=== PATIENT | male | born 1965 | race Caucasian/White ===

== ENCOUNTER 2024-11-24 13:45 | Outpatient (CLI) | payer BC, SELFPAY ==
--- OUTSIDE RECORDS SUMMARY | 2024-06-02 03:55 | XMS_ITS ---
Author Organization [facility] Address [address] [place] [address] Care Team Providers Care Manager Play Name Role Phone YANCY DOE Primary Care Provider REASON FOR VISIT WELL FASTING LAB Medications Medication SIG (Take, Route, Frequency, Duration) Notes Start Date End Date Status Azelastine HCl 0.1 % 1 puff in each nost ril Nasally Twice a day 10/18/2022 Active Atorvastatin Calcium 40 MG Take 1 tablet by mouth once daily Orally Once a day; Duration: 90 days Active Montelukast Sodium 10 mg 1 tablet in the evening Orally Once a day 01/27/2020 Active Fluticasone Propionate 50 MCG/DOSE 2 sprays Nasally Once a day 01/27/2020 Active CPAP as directed nightly 05/26/2020 Active Montelukast Sodium 10 mg 1 tablet in the evening Orally Once a day 03/27/2022 Active PARoxetine HCl 20 MG TAKE 1 TABLET BY MO UT in THE MORNING Orally Once a day; Duration: 90 days Active Lisinopril 20 MG Take 1 tablet by star th once daily Orally Once a day; Duration: 90 days Active Encounters Encounter Location Date Provider Diagnosis [facility] [address] [place] [address] 06/02/2024 YANCY DOE Other buttermilk drier operator (current) drug therapy Z79.899 and Mixed hyperlipidemia E78.2 Assessments Encounter Date Diagnosis (ICD Code) Assessment Notes Treatment Notes Treatment Clinical Notes Section Notes 06/02/2024 Other senior care (current) drug therapy (ICD-10 - Z79.899) 06/02/2024 Mixed hyperlipidemia (ICD-10 - E78.2) Plan Of Treatment Future Test Test Name Order Date URINALYSIS, DIPSTICK AND MICRO VITAMIN D 25-HYDROXY 06/02/2024 HGB A1C 06/02/2024 CBC 06/02/2024 COMPREHENSIVE METABOLIC PANEL 06/02/2024 LIPID PANEL 06/02/2024 PSA 06/02/2024 TSH 06/02/2024 Progress Notes * YANCY CHURCHILL CDOB:[birth year] (59 yo M)Acc No.[id number]:06/02/2024 Progress Notes Patient: YANCY MCLAUGHLIN Provider: Jenaro DOE MD :1965 A ge:59 Y S ex:Male Date:06/02/2024 Address:[address] [place], [place] [phone] Subjective: * Chief Complaints: * 1 . WELL FASTING LAB. * Medical History: * Medications: T aking Montelukast Sodium 10 mg Tablet 1 tablet in the evening Orally Once a day , Taking CPAP as directed nightly , Taking Montelukast Sodium 10 mg Tablet 1 tablet in the evening Orally Once a day , Taking Fluticasone Propionate 50 MCG/DOSE Suspension 2 sprays Nasally Once a day , Taking Azelastine HCl 0.1 % Solution 1 puff in each nostril Nasally Twice a day , Taking Atorvastatin Calcium 40 MG Tablet Take 1 tablet by mouth once daily Orally Once a day , Taking PARoxetine HCl 20 MG Tablet TAKE 1 TABLET BY MOUTH in THE MORNING Orally Once a day , Taking Lisinopril 20 MG Tablet Take 1 tablet by mouth once daily Orally Once a day Objective: * Vitals: Assessment: * Assessment: 1. 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 M ixed hyperlipidemia - E78.2 Plan: * Treatment: 2. M ixed hyperlipidemia L AB: LIPID PANEL (Ordered for 06/02/2024) * Billing Information: * Visit Code: * Procedure Codes: * Electronic signature of MICHEAL DOE MD on 11/25/2024 at 08:47 AM CDT Sign off status: Pending * Provider: Jenaro DOE MD Date: 0 06/02/2024 Generated for Fara torres/Guerita/Kemi on: 0 11/25/2024 08:47 AM CDT
--- OUTSIDE RECORDS SUMMARY | 2024-06-09 06:15 | XMS_ITS ---
Author Organization [facility] Address [address] [place] [address] Care Team Providers Care Commercial Instructor Supervisor Name Role Phone YANCY DOE Primary Care Provider REASON FOR VISIT WELL Encounters Encounter Location Date Provider Diagnosis [facility] [address] [address] 06/09/2024 YANCY DOE Plan Of Treatment No Information Progress Notes * YANCY CHURCHILL CDOB:[birth year] (59 yo M)Acc No.[id number]:06/09/2024 Progress Notes Patient: YANCY MCLAUGHLIN Provider: Jenaro DOE MD :1965 A ge:59 Y S ex:Male Date:06/09/2024 Address:[address] [place], [place] [id number] Subjective: * Chief Complaints: * 1 . WELL. * Medical History: Objective: * Vitals: Assessment: Plan: * Treatment: * Billing Information: * Visit Code: * Procedure Codes: * Electronic signature of MICHEAL DOE MD on 11/25/2024 at 08:47 AM CDT Sign off status: Pending * Provider: Jenaro DOE MD Date: 06/09/2024 Generated for Printi ng/Fadariong/eTransmitting on: 0 11/25/2024 08:47 AM CDT
[2024-11-24 17:28] LABS: Hematocrit 35.0 % (42.0-52.0); Hemoglobin 11.8 g/dL (14.1-18.0); Immature Granulocytes % 0.5 %; Mean Corpuscular HGB Conc 33.7 g/dL (31.8-35.4); Mean Corpuscular Hemoglobin 28.9 pg (27.0-31.2); Mean Corpuscular Volume 85.6 fl (80-94); Nucleated Red Blood Cells % 0 %; Platelet Count 253 K/mm3 (142-424); Red Blood Count 4.09 M/mm3 (4.60-6.20); Red Cell Distribution Width-SD 38.7 fL; White Blood Count 6.1 K/mm3 (4.8-10.8)
[2024-11-24 18:53] LABS: Anion Gap 18.1 mEq/L (5-15); Blood Urea Nitrogen 13 mg/dl (9-20); Calcium 8.8 mg/dl (8.4-10.2); Carbon Dioxide 26 mmol/L (22.0-30.0); Chloride 99 mmol/L (98-107); Creatinine,Serum 0.60 mg/dl (0.66-1.25); Estimated Glomerular Filt Rate 138 ml/min (>60); GFR (African American) 167 ML/MIN (>60); Glucose 89 mg/dl (74-100); Potassium 4.1 mmoL/L (3.5-5.1); Sodium 139 mmol/L (136-145)
--- OUTSIDE RECORDS SUMMARY | 2024-11-25 09:47 | XMS_ITS | Patient Health Record ---
Author Organization [facility] Address [address] [address] Care Team Providers Care Artisan Plasterer Name Role Phone YANCY DOE Primary Care Provider Allergies No Known Allergies Results Component Value Reference Range Notes Auto Diff Reviewed date:12/20/2023 08:25:32 AM Interpretation: Performing Lab:[facility], [address] [place] [address], Director - Luis Alfredo Whitmore MD Notes/Report: Neut % Auto 50.60 42.00-75.00 % Lymph % Auto 35.40 20.50-51.10 % Hemphill % Auto 8.70 0.00-12.00 % Eos % Auto 4.80 0.00-7.00 % Baso % Auto 0.20 0.00-2.00 % Immature Grans % 0.30 0.00-3.00 % Neut # Auto 2.96 1.50-6.50 10*3/uL Lymph # Auto 2.07 1.20-4.00 10*3/uL Hemphill # Auto 0.51 0.00-1.00 10*3/uL Eos # Auto 0.28 0.00-0.70 10*3/uL Baso # Auto 0.01 0.00-0.08 10*3/uL Immature Grans # Auto 0.02 UA w Microscopic Reviewed date:12/20/2023 08:25:32 AM Interpretation: Performing Lab:[address], Director - Luis Alfredo Whitmore MD Notes/Report: Ur Color Yellow Yellow Ur Clarity Clear Clear Ur Spec Grav 1.021 1.001-1.035 confirmed w/ refractometer Elevated glucose/protein may affect specific gravity. Ur pH 6.0 4.6-8.0 Ur Protein Negative Negative UR Glucose Negative Negative Ur Bili Negative Negative Ur Urobilinogen 0.2 EU/dL 0.2 EU/dL Ur Leuk Est Negative Negative Ur Ketones Negative Negative Ur Blood Negative Negative Ur Nitrite Negative Negative Ur WBC 1-2 0-2 /HPF Ur RBC 1-2 0-2 /HPF Ur Bacteria None Ur Mucous 1+ Trace /LPF Lipid Panel with Calculated LDL Reviewed date:12/20/2023 08:25:32 AM Interpretation: Performing Lab:[facility], [address] [place] [address] Notes/Report: Cholesterol 108 <=200 mg/dL Low (desirable, low risk): <200 mg/dL Borderline (moderate risk): 200?239 mg/dL High (high risk): >=240 mg/dL HDL 38 >=40 mg/dL Low (undesirable, high risk): <40.00 mg/dL High (desirable, low risk): >=60.00 mg/dL LDL Calculated 48 0-100 mg/mL Trig 112 <=150 mg/dL Normal: <150 mg/dL Borderline high: 150?199 mg/dL High: 200?499 mg/dL Very high: >=500 mg/dL HDL/Chol Risk 0.35 HDL/Chol Index Risk MALE FEMALE High <0.07 <0.12 Above Avg 0.07 - 0.15 0.12 - 0.18 Average 0.16 - 0.25 0.19 - 0.27 Below Avg 0.26 - 0.37 0.28 - 0.40 Chol/HDL 3 2-3 VLDL Chol Calc 22 2-30 mg/dL Comprehensive Metabolic Pane l Reviewed date:12/20/2023 08:25:32 AM Interpretation: Performing Lab:[facility], [address] [place] [address] Notes/Report: Glucose Level 100 74-106 mg/dL Sodium 138 136-145 mEq/mL Potassium 4.4 3.4-4.5 mmol/L Chloride 107 98-107 mmol/L CO2 28 20-31 mmol/L Anion Gap 7.4 5.0-22.0 BUN 15.0 9.0-23.0 mg/dL Creatinine 1.00 0.60-1.30 mg/dL BUN/Creat Ratio 15.0 7.0-22.0 Calcium 9.6 8.3-10.6 mg/dL Albumin. Level 4.1 3.4-5.0 g/dL TP 6.6 5.7-8.2 g/dL A/G Ratio 1.6 1.1-1.8 T Bili 1.8 0.3-1.2 mg/dL Alk Phos 94 46-116 [iU]/L AST 27 14-40 [iU]/L ALT 40 10-49 [iU]/L eGFR Cr 88 No previous cre atinine in the last 72 hours; eGFR may not be reflective of the patient?s kidney function if creatinine is rapidly changing. eGFR Pediatric Not Reported Not reported for adult patients ( > 18 years old ). Globulin 2.5 2.3-3.5 g/dL CBC with Diff Reviewed date:12/20/2023 08:25:32 AM Interpretation: Performing Lab:[facility], [address] [place] [address], Director - Luis Alfredo Whitmore MD Notes/Report: WBC 5.85 4.00-10.00 10*3/uL RBC 5.01 4.50-5.90 10*6/uL Hgb 14.3 12.0-18.0 g/dL Hct 44.4 40.0-52.0 % MCV 88.6 81.0-99.0 fL MCH 28.5 25.0-34.0 pg MCHC 32.2 32.0-36.0 g/dL RDW-CV 13.2 11.5-14.5 % Plt 227 130-450 10*3/uL MPV 10.9 7.4-13.0 fL NRBC % 0.0 NRBC # 0.00 Reason For Referral No Information Medications Medication SIG (Take, Route, Frequency, Duration) [...] sprays Nasally Once a day 01/27/2020 Active Montelukast Sodium 10 mg 1 tablet in the evening Orally Once a day 03/27/2022 Active CPAP as directed nightly 05/26/2020 Active PARoxetine HCl 20 MG TAKE 1 TABLET BY MO UTH in THE MORNING Orally Once a day; Duration: 90 days Active Lisinopril 20 MG Take 1 tablet by star once daily Orally Once a day; Duration: 90 days Active Social History Tobacco Use: Social History Observation Description Date Details (start date - stop date) Never Smoker NA - NA Tobacco Use: Question Answer Notes Are you a: never smoker Alcohol Screening: Question Answer Notes Did you have a drink containing alcohol in the p ast year? 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) Active confirmed Problem Mixed hyperlipidemia (808895628) Mixed hyperlipidemia (E78.2) Active confirmed Problem Pure hypercholesterolemia (920131343) Pure hypercholesterolemia (E78.0) Active confirmed Problem Obstructive sleep apnea syndrome (disorder) (61390002) Obstructive sleep apnea (adult) (pediatric) (G47.33) Active confirmed Problem Colon cancer screening (129011401) Colon cancer screening (Z12.11) Active confirmed Problem Elevated liver enzymes level (164842328) Elevated liver function tests (R79.89) Active confirmed Problem Overweight (917257631) Overweight (E66.3) Active confirmed Problem Dependence on enabling machine or device (866952026) Dependence on other enabling machines and devices (Z99.89) Active confirmed This for the CPAP Problem Essential hypertension (40344902) Essential hypertension (I10) Active confirmed Problem Depressive disorder (00325168) Depressive disorder, not elsewhere classified (F32.9) Active confirmed Problem Annual health maintenance examination (48375859) Annual physical exam (Z00.00) Active confirmed Problem Body mass index 30.0 0 to 34.99 (618161204062277) BMI 34.0-34.9,adult (Z68.34) Active confirmed Problem Hyperlipidaemia (65043194) Hyperlipidemia, unspecified hyperlipidemia type (E78.5) Active confirmed Problem Personal risk factor (182338417) Cardiovascular risk factor (Z91.89) Active confirmed Problem Counseling (239907766) Cardiac risk counseling (Z71.89) Active confirmed Problem Allergic rhinitis (07836304) Allergic rhinitis, unspecified seasonality, unspecified trigger (J30.9) Active confirmed Vital Signs Temperature 97.0 degrees Fahrenheit 12/26/2023 Oximetry 97 12/26/2023 Blood pressure diastolic 82 mm Hg 12/26/2023 Weight-kg 109.32 kg 12/26/2023 Height 69.75 in 12/26/2023 Blood pressure systolic 130 mm Hg 12/26/2023 Weight 241 lbs 12/26/2023 BMI 34.82 kg/m2 12/26/2023 Encounters Encounter Location Date Provider Diagnosis [facility] [address] [place] [phone] 05/08/2024 YANCY BROOK Mixed hyperlipidemia E78.2 ; Depressive disorder, not elsewhere classified F32.9 and Essential hypertension I10 [facility] [address] [place] [phone] 05/27/2024 YANCY DE OLIVEIRAAS [address] [address] 12/19/2023 YANCY ROBERTOICITAS Other group home (current) drug therapy Z79.899 and Hyperlipidemia, unspecified hyperlipidemia type E78.[address] [address] 12/26/2023 YANCY BROOK Mixed hyperlipidemia E78.2 ; Obstructive sleep apnea (adult) (pediatric) G47.33 ; Depressive disorder, not elsewhere classified F32.9 ; Essential hypertension I10 ; Other buttermaker continuous churn (current) drug therapy Z79.899 and Allergic rhinitis, unspecified seasonality, unspecified trigger J30.9 Assessments Encounter Date Diagnosis (ICD Code) Assessment Notes Treatment Notes Treatment Clinical Notes Section Notes 12/19/2023 Other buttermaker continuous churn (current) drug therapy (ICD-10 - Z79.899) 12/19/2023 Hyperlipidemia, unspecified hyperlipidemia type (ICD-10 - E78.5) 12/26/2023 Mixed hyperlipidemia (ICD-10 - E78.2) The patient is advised on heart healthy lifestyle to continue to minimize ASCVD risk. Regarding nutrition and diet, to reduce ASCVD risk, I do recommend a Mediterranean-bas ed diet with increased intake of vegetables fruits legumes fish nuts and whole grains and combined with a low-fat low-salt diet and cutting back on red meat trans fats processed meats refined carbohydrates and sweetened beverages. Patient is advised to maintain or optimize a physically active lifestyle and to decrease sedentary behavior. For those who have obesity or being overweight, weight loss is recommended to improve the ASCVD risk factor profile and includes caloric restriction or following the LGI diet. 12/26/2023 Obstructive sleep apnea (adult) (pediatric) (ICD-10 - G47.33) Patient is benefiting from the use of the CPAP Average use per night is 7 hours 05/08/2024 Mixed hyperlipidemia (ICD-10 - E78.2) 05/08/2024 Depressive disorder, not elsewhere classified (ICD-10 - F32.9) 12/26/2023 Depressive disorder, not elsewhere classified (ICD-10 - F32.9) Stable and improved.No changes in current medications or dosages.Continue current medication at same dose.Advised to observe for any side effects. Treatment expectations explained.I counseled the patient on treatment options including mental health services and medication(s) for depression and/or anxiety. The need to be compliant with medication(s) and keep appointments was reinforced. Possible side effects, including suicidal risk, and/or dependence of the medication(s) were discussed. I advised the patient to contact me and/or seek medical attention immediately if suicidal ideations develop. 12/26/2023 Essential hypertension (ICD-10 - I10) Stable and improved.No changes in current medications or dosages.Continue current medication at same dose.Advised to observe for any side effects 05/08/2024 Essential hypertension (ICD-10 - I10) 12/26/2023 Other buttermaker continuous churn (current) drug therapy (ICD-10 - Z79.899) Patient will require periodic reassessments , medication review, and lab assessments to determine medication compliance side effects and therapeutic efficacy of prescribed medications. 12/26/2023 Allergic rhinitis, unspecified seasonality, unspecified trigger (ICD-10 - J30.9) 12/26/2023 Other The patient is advised to follow-up and call the clinic or message the clinic in 1-2 weeks regarding any lab work, imaging procedures, or biopsy results. Plan Of Treatment Pending Test Test Name Order Date VENIPUNCTURE VENOUS 11/19/2018 VENIPUNCTURE VENOUS 02/04/2019 VENIPUNCTURE VENOUS 02/11/2019 VENIPUNCTURE VENOUS 08/21/2019 VENIPUNCTURE VENOUS 08/28/2019 VENIPUNCTURE VENOUS 12/03/2019 VENIPUNCTURE VENOUS 02/12/2020 VENIPUNCTURE VENOUS 08/12/2020 URINALYSIS, DIPSTICK AND MICRO 0 CBC 02/12/2020 COMPREHENSIVE METABOLIC PANEL 02/12/2020 LIPID PANEL 02/12/2020 Future Test Test Name Order Date URINALYSIS, DIPSTICK AND MICRO 5 VITAMIN D 25-HYDROXY 06/02/2024 HGB A1C 06/02/2024 CBC 06/02/2024 COMPREHENSIVE METABOLIC PANEL 06/02/2024 LIPID PANEL 06/02/2024 PSA 06/02/2024 TSH 06/02/2024 Insurance Providers Payer Name Payer Address Payer Phone Subscriber Number Group Number Insured Name Patient Relationship to Insured Coverage Start Date Coverage End Date [facility] [address] [place] [address] [id number] YANCY TAYLOR Self - patient is the insured 3 Medications Administered Medication Instructions Date of Administration Dosage Notes KENALOG PER 10 MG 01/27/2019 1 mL [id number] Medical (General) History Medical History History ICD Code Major depression Allergic rhinitis Hypertension 2018 ASCVD risk 6% FATTY LIVER PERRY Surgical History Surgery Date(Month/Year) Colonoscopy repeat in 10 years 2027 2018 Cholecystectomy
== END 2024-11-24 23:59 | disposition home or self-care (01) ==
LOC: LAB.DROPOF 11-25 09:44
PROVIDERS: PCP Family Medicine; Visit Provider Family Medicine
DX: R53.1 Weakness (principal)
CPT/HCPCS: 80048; 85025

== ENCOUNTER 2025-03-04 08:33 | Outpatient (CLI) | payer BC, SELFPAY ==
[2025-03-04 17:25] LABS: Hematocrit 40.8 % (42.0-52.0); Hemoglobin 13.4 g/dL (14.1-18.0); Immature Granulocytes % 0.3 %; Mean Corpuscular HGB Conc 32.8 g/dL (31.8-35.4); Mean Corpuscular Hemoglobin 29.2 pg (27.0-31.2); Mean Corpuscular Volume 88.9 fl (80-94); Nucleated Red Blood Cells % 0 %; Platelet Count 265 K/mm3 (142-424); Red Blood Count 4.59 M/mm3 (4.60-6.20); Red Cell Distribution Width-SD 40.2 fL; White Blood Count 6.5 K/mm3 (4.8-10.8)
[2025-03-04 17:55] LABS: Alanine Aminotransferase 43 U/L (12-78); Albumin Level 4.4 g/dl (3.5-5.0); Albumin/Globulin Ratio 1.9 (1.1-1.8); Alkaline Phosphatase 115 U/L (38-126); Anion Gap 15.6 mEq/L (5-15); Aspartate Amino Transferase 31 U/L (17-59); Bilirubin,Total 1.5 mg/dl (0.2-1.3); Blood Urea Nitrogen 16 mg/dl (9-20); Calcium 9.3 mg/dl (8.4-10.2); Carbon Dioxide 26 mmol/L (22.0-30.0); Chloride 104 mmol/L (98-107); Cholesterol 135 mg/dl (140-200); Creatinine,Serum 0.80 mg/dl (0.66-1.25); Estimated Glomerular Filt Rate 99 ml/min (>60); GFR (African American) 120 ML/MIN (>60); Globulin 2.3 g/dL (1.3-3.2); Glucose 95 mg/dl (74-100); HDL Cholesterol 52 mg/dl (40-60); Potassium 4.6 mmoL/L (3.5-5.1); Sodium 141 mmol/L (136-145); Total Protein,Serum 6.7 g/dl (6.3-8.2); Triglycerides 99 mg/dl (30-150)
[2025-03-04 18:44] LABS: Hepatitis C Ab Qual. W/ RFX NEGATIVE (Negative)
[2025-03-06 05:09] LABS: Hepatitis B Surface Antigen Negative (Negative)
== END 2025-03-04 23:59 ==
LOC: LAB.DROPOF 03-06 08:34
PROVIDERS: PCP Family Medicine; Visit Provider Family Medicine
DX: E78.5 Hyperlipidemia, unspecified (principal); I10 Essential (primary) hypertension; Z11.4 Encounter for screening for human immunodeficiency virus [HIV]; Z11.59 Encounter for screening for other viral diseases
CPT/HCPCS: 80053; 80061; 85025; 86803; 87340; 87389